=== PATIENT | male | born 1985 | race African-American/Black ===

== ENCOUNTER 2018-06-26 09:11 | Emergency (ER) | payer MEDICAID, OTHER ==
[~2018-06-26] VITALS: Ht 165.1 cm; Wt 109.0 kg
[2018-06-26] MEDS ORDERED: TETANUS, DIPHTHERIA, PERTUSSIS VAC/PF 0.5ML (>7YR OLD) IM ONE (10:15)
[2018-06-26] MEDS ORDERED: IBUPROFEN 600MG TABLET PO ONE (10:30)
[2018-06-26 10:43] VITALS: BP 132/84
== END 2018-06-26 10:43 | disposition home or self-care (01) ==
LOC: ER 09:11
DX: S61.012A Laceration without foreign body of left thumb without damage to nail, initial encounter (principal); W26.8XXA Contact with other sharp object(s), not elsewhere classified, initial encounter; Y93.89 Activity, other specified; Y92.018 Other place in single-family (private) house as the place of occurrence of the external cause
CPT/HCPCS: 90471; 90715; 99283; X7700